=== PATIENT | male | born 1995 | race Caucasian/White ===

== ENCOUNTER 2016-06-15 14:09 | Emergency (ER) | payer OTHER ==
--- NOTE | 2016-06-15 14:52 | EDDOCDS ---
Physician Documentation [facility] Name: Hasmukh Newsome Age: 21 yrs Sex: Male : 1995 Arrival Date: 06/15/2016 Time: 14:09 Bed Triage 3 Private MD: PSYCHIATRIC [place] Disposition: 06/15/16 14:46 Discharged to Home/Self Care. Impression: Panic disorder [episodic paroxysmal anxiety] without agoraphobia, Abdominal and pelvic pain - left sided. - Condition is Stable. - Discharge Instructions: Panic Attacks. - Medication Reconciliation form. - Follow up: [facility]; When: Call to arrange an appointment; Reason: Wound/Symptom Recheck, Recheck today's complaints, Continuance of care. - Problem is an ongoing problem. - Symptoms are resolved. Historical: - Allergies: Ibuprofen (Anaphylaxis); - Home Meds: 1. none - PMHx: Anxiety; Arthritis; back injury; Panic Disorder; - PSHx: none; - Social history: Smoking status: Patient uses tobacco products, light tobacco smoker. No barriers to communication noted, The patient speaks fluent Montserratian. - : The pt / caregiver states he / she is not on anticoagulants. Home medication list is obtained from the patient. - Exposure Risk Screening:: None identified. Vital Signs: 06/15 14:11 BP 133 / 79; Pulse 78; Resp 18 S; Temp 97.6(O); Pulse Ox 100% on R/A; Weight 67.13 kg / gr2 148 lbs (R); Height 5 ft. 10 in. (177.80 cm) (R); Pain 3/10; 14:11 Body Mass Index 21.24 (67.13 kg, 177.80 cm) gr2 MDM: 14:50 Financial registration complete. lg Signatures: Edinson Clements RN RN dwg Jobson, Karen, RN RN kpj Ganter, LoriLee, Beau Reg lg Scotty Brooks, KB PAPaulette cc10 MTDD
--- NOTE | 2016-06-15 14:52 | EDDOCDS ---
Nurse's Notes [facility] Name: Hasmukh Newsome Age: 21 yrs Sex: Male : 1995 Arrival Date: 06/15/2016 Time: 14:09 Bed Triage 3 Private MD: AZDawood PARIS Diagnosis: Abdominal and pelvic pain-left sided;Panic disorder [episodic paroxysmal anxiety] without agoraphobia Presentation: 06/15 14:22 Presenting complaint: Patient states: while at a yoga class 1025 today felt his whole [facility] body tense up couldn't move eyes rolled back , denies LOC , body began to shake ,episode only lasted 10 seconds.States has a panic disorder and generalized anxiety disorder. Adult Sepsis Screening: The patient does not have new or worsening altered mentation. Patient's respiratory rate is less than 22. Systolic blood pressure is greater than 100. Patient has a qSOFA score of 0- Negative Sepsis Screen. Suicide/Homicide risk assessment- the patient denies having any suicidal and/or homicidal ideations and does not present with any other emotional, behavioral or mental health complaints. 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 Transition of care: patient was not received from another setting of care. 14:22 Acuity: EBONIE Level 3 [facility] 14:22 Method Of Arrival: Walkin/Carried/Asstd [facility] Triage Assessment: 14:28 General: Appears in no apparent distress, well nourished, well groomed, Behavior is j appropriate for age, pleasant. Pain: Location: anterior aspect of left lateral abdomen and anterior aspect of right lateral abdomen Pain currently is 4 out of 10 on a pain scale. Pt Declines HIV testing. Neurological: Level of Consciousness is awake, alert, Oriented to person, place, time. Respiratory: Airway is patent Respiratory effort is even, unlabored, Respiratory pattern is regular, symmetrical. GI: Reports Pain is 4 out of 10 on a pain scale. Derm: Skin is pink, warm & dry. Historical: - Allergies: Ibuprofen (Anaphylaxis); - Home Meds: 1. none - PMHx: Anxiety; Arthritis; back injury; Panic Disorder; - PSHx: none; - Social history: Smoking status: Patient uses tobacco products, light tobacco smoker. No barriers to communication noted, The patient speaks fluent Vietnamese. - : The pt / caregiver states he / she is not on anticoagulants. Home medication list is obtained from the patient. - Exposure Risk Screening:: None identified. Screenin:50 Screening information is obtained from the patient. Fall risk: No risks identified. dwg Assistance ADL's: requires no assistance with activities of daily living. Abuse/DV Screen: The patient / caregiver reports he/she is: not in a situation that causes fear, pain or injury. Nutritional screening: No deficits noted. Advance Directives: Currently, there is no health care proxy. There is no active DNR order. There is no living will. There is no Power of Automatic Dispenser Mechanic. Advance directive information has not previously been placed in an [facility] medical record. Further advance directive information is declined. home support is adequate. Assessment: 14:49 General: Appears in no apparent distress, Behavior is cooperative, pleasant. Pain: dwg Denies pain. Neurological: Level of Consciousness is awake, alert, Oriented to person, place, time. Respiratory: Airway is patent Respiratory effort is even, unlabored, Respiratory pattern is regular, symmetrical. Vital Signs: 14:11 BP 133 / 79; Pulse 78; Resp 18 S; Temp 97.6(O); Pulse Ox 100% on R/A; Weight 67.13 kg gr2 (R); Height 5 ft. 10 in. (177.80 cm) (R); Pain 3/10; 14:11 Body Mass Index 21.24 (67.13 kg, 177.80 cm) gr2 Vitals: 14:11 Log In Time: June 15, 2016 at 14:11. gr2 ED Course: 14:11 Patient visited by Olga Wells. gr2 14:11 [facility] is Private Physician. gr2 14:11 Patient moved to Waiting gr2 14:13 Patient visited by Olga Wells. gr2 14:13 Patient moved to Pre RCE gr2 14:26 Triage Initiated [facility] 14:30 Patient moved to Triage 3 kp 14:33 Scot[facility] Brooks [facility] cc[facility] 14:33 Day Dougherty MD is Attending Physician. cc10 14:33 Patient visited by Scotty Brooks PA-C. cc10 14:33 Patient visited by Scotty Brooks PA-C. cc10 14:45 [facility] Drum is Referral Physician. cc10 Order Results: There are currently no results for this order. Outcome: 14:46 Discharge ordered by Provider. cc10 14:50 Patient left the ED. [facility] Signatures: Edinson Clements, RN RN Sharona Mary RN RN Olga Muñoz gr2 Scotty Brooks, PACrystalC PA-C cc10 MTDD
--- NOTE | 2016-06-17 15:52 | EDDOCDS ---
Physician Documentation [facility] Name: Hasmukh Newsome Age: 21 yrs Sex: Male : 1995 Arrival Date: 06/15/2016 Time: 14:09 Bed Triage 3 Private MD: [facility] [place] Disposition: 06/15/16 14:46 Discharged to Home/Self Care. Impression: Panic disorder [episodic paroxysmal anxiety] without agoraphobia, Abdominal and pelvic pain - left sided. - Condition is Stable. - Discharge Instructions: Panic Attacks. - Medication Reconciliation form. - Follow up: [facility]; When: Call to arrange an appointment; Reason: Wound/Symptom Recheck, Recheck today's complaints, Continuance of care. - Problem is an ongoing problem. - Symptoms are resolved. Historical: - Allergies: Ibuprofen (Anaphylaxis); - Home Meds: 1. none - PMHx: Anxiety; Arthritis; back injury; Panic Disorder; - PSHx: none; - Social history: Smoking status: Patient uses tobacco products, light tobacco smoker. No barriers to communication noted, The patient speaks fluent Northern Irish. - : The pt / caregiver states he / she is not on anticoagulants. Home medication list is obtained from the patient. - Exposure Risk Screening:: None identified. Vital Signs: 06/15 14:11 BP 133 / 79; Pulse 78; Resp 18 S; Temp 97.6(O); Pulse Ox 100% on R/A; Weight 67.13 kg / gr2 148 lbs (R); Height 5 ft. 10 in. (177.80 cm) (R); Pain 3/10; 14:11 Body Mass Index 21.24 (67.13 kg, 177.80 cm) gr2 MDM: 14:50 Financial registration complete. lg 15:23 [facility] Payment Agreement was scanned into [employer] and attached to record. lg 06/16 11:41 T-Sheet-- Draft Copy was scanned into [employer] and attached to record. gb Signatures: Edinson Clements RN ILENE Sharona Drake RN RN kpj Barnhardt, Gloria, Reg Reg gb Erasto Erickson, Reg Reg lg Scotty Brooks, PA-C PA-C cc10 The chart was reviewed and I authenticate all verbal orders and agree with the evaluation and treatment provided.Attachments: 06/15 15:23 [facility] Payment Agreement lg 06/16 11:41 T-Sheet-- Draft Copy gb Chart Complete MTDD
--- NOTE | 2016-06-17 15:52 | EDDOCDS ---
Nurse's Notes [facility] Name: Hasmukh Newsome Age: 21 yrs Sex: Male : 1995 Arrival Date: 06/15/2016 Time: 14:09 Bed Triage 3 Private MD: OKDawood PARIS Diagnosis: Abdominal and pelvic pain-left sided;Panic disorder [episodic paroxysmal anxiety] without agoraphobia Presentation: 06/15 14:22 Presenting complaint: Patient states: while at a yoga class 1025 today felt his whole [facility] body tense up couldn't move eyes rolled back , denies LOC , body began to shake ,episode only lasted 10 seconds.States has a panic disorder and generalized anxiety disorder. Adult Sepsis Screening: The patient does not have new or worsening altered mentation. Patient's respiratory rate is less than 22. Systolic blood pressure is greater than 100. Patient has a qSOFA score of 0- Negative Sepsis Screen. Suicide/Homicide risk assessment- the patient denies having any suicidal and/or homicidal ideations and does not present with any other emotional, behavioral or mental health complaints. 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 Transition of care: patient was not received from another setting of care. 14:22 Acuity: EBONIE Level 3 [facility] 14:22 Method Of Arrival: Walkin/Carried/Asstd [facility] Triage Assessment: 14:28 General: Appears in no apparent distress, well nourished, well groomed, Behavior is j appropriate for age, pleasant. Pain: Location: anterior aspect of left lateral abdomen and anterior aspect of right lateral abdomen Pain currently is 4 out of 10 on a pain scale. Pt Declines HIV testing. Neurological: Level of Consciousness is awake, alert, Oriented to person, place, time. Respiratory: Airway is patent Respiratory effort is even, unlabored, Respiratory pattern is regular, symmetrical. GI: Reports Pain is 4 out of 10 on a pain scale. Derm: Skin is pink, warm & dry. Historical: - Allergies: Ibuprofen (Anaphylaxis); - Home Meds: 1. none - PMHx: Anxiety; Arthritis; back injury; Panic Disorder; - PSHx: none; - Social history: Smoking status: Patient uses tobacco products, light tobacco smoker. No barriers to communication noted, The patient speaks fluent Kyrgyz. - : The pt / caregiver states he / she is not on anticoagulants. Home medication list is obtained from the patient. - Exposure Risk Screening:: None identified. Screenin:50 Screening information is obtained from the patient. Fall risk: No risks identified. dwg Assistance ADL's: requires no assistance with activities of daily living. Abuse/DV Screen: The patient / caregiver reports he/she is: not in a situation that causes fear, pain or injury. Nutritional screening: No deficits noted. Advance Directives: Currently, there is no health care proxy. There is no active DNR order. There is no living will. There is no Power of Bank Vault Custodian. Advance directive information has not previously been placed in an [facility] medical record. Further advance directive information is declined. home support is adequate. Assessment: 14:49 General: Appears in no apparent distress, Behavior is cooperative, pleasant. Pain: dwg Denies pain. Neurological: Level of Consciousness is awake, alert, Oriented to person, place, time. Respiratory: Airway is patent Respiratory effort is even, unlabored, Respiratory pattern is regular, symmetrical. Vital Signs: 14:11 BP 133 / 79; Pulse 78; Resp 18 S; Temp 97.6(O); Pulse Ox 100% on R/A; Weight 67.13 kg gr2 (R); Height 5 ft. 10 in. (177.80 cm) (R); Pain 3/10; 14:11 Body Mass Index 21.24 (67.13 kg, 177.80 cm) gr2 Vitals: 14:11 Log In Time: June 15, 2016 at 14:11. gr2 ED Course: 14:11 Patient visited by Olga Wells. gr2 14:11 [facility] is Private Physician. gr2 14:11 Patient moved to Waiting gr2 14:13 Patient visited by Olga Wells. gr2 14:13 Patient moved to Pre RCE gr2 14:26 Triage Initiated [facility] 14:30 Patient moved to Triage 3 kp 14:33 Scotty Brooks [facility]-C [facility]. cc10 14:33 Day Dougherty MD is Attending Physician. cc10 14:33 Patient visited by Scotty Brooks PA-C. cc10 14:33 Patient visited by Scotty Brooks PA-C. cc10 14:45 [facility] Drum is Referral Physician. cc10 15:23 [facility] Payment Agreement was scanned into [employer] and attached to record. 06/16 11:41 T-Sheet-- Draft Copy was scanned into [employer] and attached to record. gb Order Results: There are currently no results for this order. Outcome: 06/15 14:46 Discharge ordered by Provider. cc10 14:[address] [facility] Signatures: Edinson Clements RN RN [facility] Sharona Herrera RN RN Chelsie Duncan, Reg Reg gb Erasto Erickson, Reg Reg lg Olga Wells gr2 Scotty Brooks PA-C PAPaulette cc10 Chart Complete MTDAlejandro
--- NOTE | 2016-06-17 15:52 | EDDOCDS ---
Physician Documentation [facility] Name: Hasmukh Newsome Age: 21 yrs Sex: Male : 1995 Arrival Date: 06/15/2016 Time: 14:09 Bed Triage 3 Private MD: [facility] [place] Disposition: 06/15/16 14:46 Discharged to Home/Self Care. Impression: Panic disorder [episodic paroxysmal anxiety] without agoraphobia, Abdominal and pelvic pain - left sided. - Condition is Stable. - Discharge Instructions: Panic Attacks. - Medication Reconciliation form. - Follow up: [facility]; When: Call to arrange an appointment; Reason: Wound/Symptom Recheck, Recheck today's complaints, Continuance of care. - Problem is an ongoing problem. - Symptoms are resolved. Historical: - Allergies: Ibuprofen (Anaphylaxis); - Home Meds: 1. none - PMHx: Anxiety; Arthritis; back injury; Panic Disorder; - PSHx: none; - Social history: Smoking status: Patient uses tobacco products, light tobacco smoker. No barriers to communication noted, The patient speaks fluent Malawian. - : The pt / caregiver states he / she is not on anticoagulants. Home medication list is obtained from the patient. - Exposure Risk Screening:: None identified. Vital Signs: 06/15 14:11 BP 133 / 79; Pulse 78; Resp 18 S; Temp 97.6(O); Pulse Ox 100% on R/A; Weight 67.13 kg / gr2 148 lbs (R); Height 5 ft. 10 in. (177.80 cm) (R); Pain 3/10; 14:11 Body Mass Index 21.24 (67.13 kg, 177.80 cm) gr2 MDM: 14:50 Financial registration complete. lg 15:23 [facility] Payment Agreement was scanned into [employer] and attached to record. lg 06/16 11:41 T-Sheet-- Draft Copy was scanned into [employer] and attached to record. gb Signatures: Edinson Clements RN ILENE Sharona Drake RN RN kpj Barnhardt, Gloria, Reg Reg gb Erasto Erickson, Reg Reg lg Scotty Brooks, PA-C PA-C [id number] The chart was reviewed and I authenticate all verbal orders and agree with the evaluation and treatment provided.Attachments: 06/15 15:23 [facility] Payment Agreement lg 06/16 11:41 T-Sheet-- Draft Copy gb Chart Complete MTDD
== END 2016-06-15 14:50 | disposition home or self-care (01) ==
LOC: M ED 14:09
DX: F41.0 Panic disorder [episodic paroxysmal anxiety] (principal); R10.9 Unspecified abdominal pain; Z87.820 Personal history of traumatic brain injury; M19.90 Unspecified osteoarthritis, unspecified site; Z87.828 Personal history of other (healed) physical injury and trauma; F17.210 Nicotine dependence, cigarettes, uncomplicated; Z88.6 Allergy status to analgesic agent

== ENCOUNTER → 2016-06-15 | Outpatient (REF) | payer OTHER | LOC: M SFHCLERA 13:12 | PROVIDERS: ATTEND Nurse Practitioner Family | DX: R11.0 Nausea (principal) ==

== ENCOUNTER 2016-06-16 10:12 | Emergency (ER) | payer OTHER ==
--- NOTE | 2016-06-16 13:24 | EDDOCDS ---
Nurse's Notes [facility] Name: Hasmukh Newsome Age: 21 yrs Sex: Male : 1995 Arrival Date: 06/16/2016 Time: 10:12 Bed [facility] Private MD: RIDawood PARIS Diagnosis: Anxiety disorder, unspecified Presentation: 06/16 10:16 Presenting complaint: Patient states: yesterday had a bad panic attack- entire body srm locked up and convulsed. seen here for the incident. today while at work started to get shaking in arms and legs again. hx of panic disorder and attacks. Presenting complaint: Patient states: has been off meds since march. Mental Health Triage Level: Level 2: made statement to commander that i dont know what il;ll do if i have to stay here any longer. Adult Sepsis Screening: The patient does not have new or worsening altered mentation. Patient's respiratory rate is less than 22. Systolic blood pressure is greater than 100. Patient has a qSOFA score of 0- Negative Sepsis Screen. Suicide/Homicide risk assessment- Patient denies SI and HI but presents with another emotional, behavioral or other mental health complaint. The patient reports that he/she has not been admitted to an inpatient mental health facility in the last 30 days. The patient reports that he/she has a recent or current history of substance abuse. The patient reports that he/she has no prior history of suicide attempt and/or organized plan. The patient reports that he/she has experienced a significant life altering event in the last 30 days. 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 Transition of care: patient was not received from another setting of care. 10:16 Acuity: EBONIE Level 3 srm 10:16 Method Of Arrival: Walkin/Carried/Asstd srm Triage Assessment: 10:20 General: Appears in no apparent distress, Behavior is anxious, appropriate for age, srm cooperative. Pain: Denies pain. HIV screening NA for this visit Offered previously. Historical: - Allergies: Ibuprofen (Anaphylaxis); - Home Meds: 1. none - PMHx: Anxiety; Arthritis; back injury; Panic Disorder; - PSHx: none; - Social history: Smoking status: Patient uses tobacco products, current every day smoker. No barriers to communication noted, The patient speaks fluent Portuguese, Speaks appropriately for age. - Family history: Not pertinent. - : The pt / caregiver states he / she is not on anticoagulants. Home medication list is obtained from the patient. - Exposure Risk Screening:: None identified. Screenin:49 Screening information is obtained from the patient. Fall risk: No risks identified. rs3 Assistance ADL's: requires no assistance with activities of daily living. Abuse/DV Screen: The patient / caregiver reports he/she is: not in a situation that causes fear, pain or injury. Nutritional screening: No deficits noted. Advance Directives: Currently, there is no health care proxy. There is no active DNR order. home support is adequate. Assessment: 11:39 General: Appears in no apparent distress, Behavior is appropriate for age, cooperative. rs3 General: patient significant other came out called the staff saying he was having panic attack. talked to the patient. states" i closed my eyes, had fiery thought, my body went stiff,numb and could not move" got scared" as patient talked about his panic attack, he also described the several coping mechanism tools he used in the past. Reinforced on doing coping technique that helps him. patient sits on stretcher more calm and relieved after brief conversation. . Pain: Denies pain. Cardiovascular: Capillary refill < 3 seconds. Respiratory: Airway is patent Respiratory effort is even, unlabored, Respiratory pattern is regular, symmetrical. Derm: Skin is pink, warm & dry. 12:45 General: Appears in no apparent distress, Behavior is appropriate for age, cooperative, rs3 waiting for lunch. family at bedside. dawood Moy with patient talking to him. denies of distress/pain. . 13:23 Reassessment: Patient appears in no apparent distress at this time. Patient denies pain rs3 at this time. Patient states feeling better. Patient states symptoms have improved. Social Work Consult: 12:48 Social Work Note: Met with Pt and at bedside. Pt is AD and in process of rb med boarding out [employer] the [employer] according to Pt. Pt reported has severe panic attacks to the point of his body will "lock up" . Pt stated panic attacks started 06/2015 after attending [employer], had a bad landing do to chute not opening correctly. Pt reports now terrified of elevators, plans, heights. Pt stated hx of anxiety since age 11 but worse after 06/2015. According to Pt in process of med boarding out of the [employer] , JONATHAN is Vickie Sun[facility] on [facility]. 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 Pt seen by Dr. Sharif \\T\\ Justin, every 2 weeks for TBI/ therapy. Pt stated medication has run out 03/2016, and has not been seen at [facility] for the last 3 months. Pt lives with supportive of 6 months. Pt reported not sleeping, has racing thoughts. Pt to followup with [facility]. No further interventions needed at this time. Vital Signs: 10:13 BP 155 / 93; Pulse 96; Resp 18 S; Temp 96.9(O); Pulse Ox 98% on R/A; Weight 67.13 kg dd6 (R); Height 5 ft. 10 in. (177.80 cm) (R); 13:23 BP 152 / 91; Pulse 84; Resp 18; Temp 98(T); Pulse Ox 99% on R/A; Pain 0/10; rs3 10:13 Body Mass Index 21.24 (67.13 kg, 177.80 cm) dd6 Vitals: 10:13 Log In Time: June 16, 2016 at 10:11. RN notified that patient meets Red Flag dd6 criteria. ED Course: 10:13 Patient visited by Refugio Roque PCA. dd6 10:13 [facility] [place] is Private Physician. dd6 10:13 Patient moved to Waiting dd6 10:19 Triage Initiated srm 10:20 Patient moved to 30 srm 10:21 Patient moved to RUST srm 10:23 Day Dougherty MD is Attending Physician. sd1 10:29 Patient visited by Day Dougherty MD. sd1 10:45 Psych Safety Check: Location: Psych Room. Visual Assessment: Cooperative. pjf 10:50 Psych Safety Check: Location: Psych Room. Visual Assessment: pt signature obtained on tmm1 inventory sheet, pt is cooperative and conversing with spouse. 10:56 [facility] Payment Agreement was scanned into [employer] and attached to record. lg 11:06 Pt greeted and oriented to ED. Patient advised of names of staff involved in care, pjf location of call childs, wait times and NPO status. Accompanied by Family Member, Patient has correct armband on for positive identification. Placed in psych safe attire. Bed in low position. Call light in reach. Side rails up X 1. Security observing. Property removed, secured in belongings bag- Placed in locker #5. Door closed. Noise minimized. Visitors limited. Report received from rn - psych. triage level #2, anx., cooperative \\T\\ this time. The patient / caregiver is instructed regarding the plan of care and ED course. Psych Safety Check: Location: Psych Room. 11:13 Patient visited by Genny Campbell RN. rs3 11:29 Patient visited by Beatrice Mg PCA. tmm1 11:44 Patient visited by Beatrice Mg PCA. tmm1 11:57 Patient visited by Greg Lee Security Aide. pjf 12:16 Patient visited by Greg Lee Security Aide. pjf 12:32 Patient visited by Greg Lee Security Aide. pjf 12:48 Patient visited by Greg Lee Security Aide. pjf 13:10 [facility] sd1 13:24 No IV's were initiated during this patient's visit. No procedures done that require rs3 assistance. Order Results: There are currently no results for this order. Outcome: 13:10 Discharge ordered by Provider. sd1 13:23 Discharge Assessment: patient administered narcotics - no. The following High Risk rs3 Discharge criteria are identified: None. Discharged to home linda. Condition: stable. Discharge instructions given to patient, Instructed on discharge instructions, follow up and referral plans. medication usage, Demonstrated understanding of instructions, medications, Pt was receptive of discharge instructions/ teaching. No special radiology studies were completed. 13:24 Patient left the ED. rs3 Signatures: Day Dougherty MD MD sd1 Karmen Valera RN RN srm Beka, Shell, PSA PSA rb Erasto Erickson, Reg Reg lg Greg Lee Security Aide Securpjf Refugio Roque, SENIOR ANDROID DEVELOPER SENIOR ANDROID DEVELOPER dd6 Genny Campbell RN RN rs3 McLBeatrice peck PCA SENIOR ANDROID DEVELOPER tmm1 MTDD
--- NOTE | 2016-06-16 13:24 | EDDOCDS ---
Physician Documentation [facility] Name: Hasmukh Newsome Age: 21 yrs Sex: Male : 1995 Arrival Date: 06/16/2016 Time: 10:12 Bed [facility] Private MD: Dawood BRANDT Disposition: 06/16/16 13:10 Discharged to Home/Self Care. Impression: Anxiety disorder, unspecified. - Condition is Stable. - Discharge Instructions: Panic Attacks, Generalized Anxiety Disorder, Panic Attacks, [id number]. - Medication Reconciliation, Local Pharmacy Hours form. - Follow up: Dawood Hurtado, [facility]; When: Upon discharge from the Emergency Department. - Problem is an acute exacerbation. - Symptoms are resolved. Historical: - Allergies: Ibuprofen (Anaphylaxis); - Home Meds: 1. none - PMHx: Anxiety; Arthritis; back injury; Panic Disorder; - PSHx: none; - Social history: Smoking status: Patient uses tobacco products, current every day smoker. No barriers to communication noted, The patient speaks fluent Greenlandic, Speaks appropriately for age. - Family history: Not pertinent. - : The pt / caregiver states he / she is not on anticoagulants. Home medication list is obtained from the patient. - Exposure Risk Screening:: None identified. Vital Signs: 06/16 10:13 BP 155 / 93; Pulse 96; Resp 18 S; Temp 96.9(O); Pulse Ox 98% on R/A; Weight 67.13 kg / dd6 148 lbs (R); Height 5 ft. 10 in. (177.80 cm) (R); 13:23 BP 152 / 91; Pulse 84; Resp 18; Temp 98(T); Pulse Ox 99% on R/A; Pain 0/10; rs3 10:13 Body Mass Index 21.24 (67.13 kg, 177.80 cm) dd6 MDM: 10:49 Financial registration complete. lg 10:56 [facility] Payment Agreement was scanned into [employer] and attached to record. Signatures: Day Dougherty MD MD sd1 Karmen Valera RN RN Erasto Barone, Reg Reg lg Genny Campbell RN RN rs3 The chart was reviewed and I authenticate all verbal orders and agree with the evaluation and treatment provided.Attachments: 10:56 [facility] Payment Agreement lg MTDD
--- NOTE | 2016-06-18 14:25 | EDDOCDS ---
Physician Documentation [facility] Name: Hasmukh Newsome Age: 21 yrs Sex: Male : 1995 Arrival Date: 06/16/2016 Time: 10:12 Bed [facility] Private MD: Dawood BRANDT Disposition: 06/16/16 13:10 Discharged to Home/Self Care. Impression: Anxiety disorder, unspecified. - Condition is Stable. - Discharge Instructions: Panic Attacks, Generalized Anxiety Disorder, Panic Attacks, [id number]. - Medication Reconciliation, Local Pharmacy Hours form. - Follow up: Dawood Hurtado, [facility]; When: Upon discharge from the Emergency Department. - Problem is an acute exacerbation. - Symptoms are resolved. Historical: - Allergies: Ibuprofen (Anaphylaxis); - Home Meds: 1. none - PMHx: Anxiety; Arthritis; back injury; Panic Disorder; - PSHx: none; - Social history: Smoking status: Patient uses tobacco products, current every day smoker. No barriers to communication noted, The patient speaks fluent Azerbaijani, Speaks appropriately for age. - Family history: Not pertinent. - : The pt / caregiver states he / she is not on anticoagulants. Home medication list is obtained from the patient. - Exposure Risk Screening:: None identified. Vital Signs: 06/16 10:13 BP 155 / 93; Pulse 96; Resp 18 S; Temp 96.9(O); Pulse Ox 98% on R/A; Weight 67.13 kg / dd6 148 lbs (R); Height 5 ft. 10 in. (177.80 cm) (R); 13:23 BP 152 / 91; Pulse 84; Resp 18; Temp 98(T); Pulse Ox 99% on R/A; Pain 0/10; rs3 10:13 Body Mass Index 21.24 (67.13 kg, 177.80 cm) dd6 MDM: 10:49 Financial registration complete. lg 10:56 [facility] Payment Agreement was scanned into [employer] and attached to record. Signatures: Day Dougherty MD MD sd1 Karmen Valera RN RN Erasto Barone, Reg Reg lg Genny Campbell RN RN rs3 The chart was reviewed and I authenticate all verbal orders and agree with the evaluation and treatment provided.Attachments: 10:56 [facility] Payment Agreement lg Chart Complete MTDD
--- NOTE | 2016-06-18 14:25 | EDDOCDS ---
Physician Documentation [facility] Name: Hasmukh Newsome Age: 21 yrs Sex: Male : 1995 Arrival Date: 06/16/2016 Time: 10:12 Bed [facility] Private MD: Dawood BRANDT Disposition: 06/16/16 13:10 Discharged to Home/Self Care. Impression: Anxiety disorder, unspecified. - Condition is Stable. - Discharge Instructions: Panic Attacks, Generalized Anxiety Disorder, Panic Attacks, [id number]. - Medication Reconciliation, Local Pharmacy Hours form. - Follow up: Dawood Hurtado, [facility]; When: Upon discharge from the Emergency Department. - Problem is an acute exacerbation. - Symptoms are resolved. Historical: - Allergies: Ibuprofen (Anaphylaxis); - Home Meds: 1. none - PMHx: Anxiety; Arthritis; back injury; Panic Disorder; - PSHx: none; - Social history: Smoking status: Patient uses tobacco products, current every day smoker. No barriers to communication noted, The patient speaks fluent Armenian, Speaks appropriately for age. - Family history: Not pertinent. - : The pt / caregiver states he / she is not on anticoagulants. Home medication list is obtained from the patient. - Exposure Risk Screening:: None identified. Vital Signs: 06/16 10:13 BP 155 / 93; Pulse 96; Resp 18 S; Temp 96.9(O); Pulse Ox 98% on R/A; Weight 67.13 kg / dd6 148 lbs (R); Height 5 ft. 10 in. (177.80 cm) (R); 13:23 BP 152 / 91; Pulse 84; Resp 18; Temp 98(T); Pulse Ox 99% on R/A; Pain 0/10; rs3 10:13 Body Mass Index 21.24 (67.13 kg, 177.80 cm) dd6 MDM: 10:49 Financial registration complete. lg 10:56 [facility] Payment Agreement was scanned into [employer] and attached to record. Signatures: Day Dougherty MD MD sd1 Karmen Valera RN RN Erasto Barone, Reg Reg lg Genny Campbell RN RN rs3 The chart was reviewed and I authenticate all verbal orders and agree with the evaluation and treatment provided.Attachments: 10:56 [facility] Payment Agreement lg Chart Complete MTDD
--- NOTE | 2016-06-18 14:25 | EDDOCDS ---
Nurse's Notes [facility] Name: Hasmukh Newsome Age: 21 yrs Sex: Male : 1995 Arrival Date: 06/16/2016 Time: 10:12 Bed [facility]5 Private MD: DCDawood [place] Diagnosis: Anxiety disorder, unspecified Presentation: 06/16 10:16 Presenting complaint: Patient states: yesterday had a bad panic attack- entire body srm locked up and convulsed. seen here for the incident. today while at work started to get shaking in arms and legs again. hx of panic disorder and attacks. Presenting complaint: Patient states: has been off meds since march. Mental Health Triage Level: Level 2: made statement to commander that i dont know what il;ll do if i have to stay here any longer. Adult Sepsis Screening: The patient does not have new or worsening altered mentation. Patient's respiratory rate is less than 22. Systolic blood pressure is greater than 100. Patient has a qSOFA score of 0- Negative Sepsis Screen. Suicide/Homicide risk assessment- Patient denies SI and HI but presents with another emotional, behavioral or other mental health complaint. The patient reports that he/she has not been admitted to an inpatient mental health facility in the last 30 days. The patient reports that he/she has a recent or current history of substance abuse. The patient reports that he/she has no prior history of suicide attempt and/or organized plan. The patient reports that he/she has experienced a significant life altering event in the last 30 days. 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 Transition of care: patient was not received from another setting of care. 10:16 Acuity: EBONIE Level 3 srm 10:16 Method Of Arrival: Walkin/Carried/Asstd srm Triage Assessment: 10:20 General: Appears in no apparent distress, Behavior is anxious, appropriate for age, srm cooperative. Pain: Denies pain. HIV screening NA for this visit Offered previously. Historical: - Allergies: Ibuprofen (Anaphylaxis); - Home Meds: 1. none - PMHx: Anxiety; Arthritis; back injury; Panic Disorder; - PSHx: none; - Social history: Smoking status: Patient uses tobacco products, current every day smoker. No barriers to communication noted, The patient speaks fluent Italian, Speaks appropriately for age. - Family history: Not pertinent. - : The pt / caregiver states he / she is not on anticoagulants. Home medication list is obtained from the patient. - Exposure Risk Screening:: None identified. Screenin:49 Screening information is obtained from the patient. Fall risk: No risks identified. rs3 Assistance ADL's: requires no assistance with activities of daily living. Abuse/DV Screen: The patient / caregiver reports he/she is: not in a situation that causes fear, pain or injury. Nutritional screening: No deficits noted. Advance Directives: Currently, there is no health care proxy. There is no active DNR order. home support is adequate. Assessment: 11:39 General: Appears in no apparent distress, Behavior is appropriate for age, cooperative. rs3 General: patient significant other came out called the staff saying he was having panic attack. talked to the patient. states" i closed my eyes, had fiery thought, my body went stiff,numb and could not move" got scared" as patient talked about his panic attack, he also described the several coping mechanism tools he used in the past. Reinforced on doing coping technique that helps him. patient sits on stretcher more calm and relieved after brief conversation. . Pain: Denies pain. Cardiovascular: Capillary refill < 3 seconds. Respiratory: Airway is patent Respiratory effort is even, unlabored, Respiratory pattern is regular, symmetrical. Derm: Skin is pink, warm & dry. 12:45 General: Appears in no apparent distress, Behavior is appropriate for age, cooperative, rs3 waiting for lunch. family at bedside. dawood Moy with patient talking to him. denies of distress/pain. . 13:23 Reassessment: Patient appears in no apparent distress at this time. Patient denies pain rs3 at this time. Patient states feeling better. Patient states symptoms have improved. Social Work Consult: 12:48 Social Work Note: Met with Pt and at bedside. Pt is AD and in process of rb med boarding [employer] according to Pt. Pt reported has severe panic attacks to the point of his body will "lock up" . Pt stated panic attacks started 06/2015 after attending [employer], had a bad landing do to chute not opening correctly. Pt reports now terrified of elevators, plans, heights. Pt stated hx of anxiety since age 11 but worse after 06/2015. According to Pt in process of med boarding out of the [employer] , JONATHAN is Vickie [employer] on [facility]. 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 Pt seen by Dr. Sharif \\T\\ Justin, every 2 weeks for TBI/ therapy. Pt stated medication has run out 03/2016, and has not been seen at [facility] for the last 3 months. Pt lives with supportive of 6 months. Pt reported not sleeping, has racing thoughts. Pt to followup with [facility]. No further interventions needed at this time. Vital Signs: 10:13 BP 155 / 93; Pulse 96; Resp 18 S; Temp 96.9(O); Pulse Ox 98% on R/A; Weight 67.13 kg dd6 (R); Height 5 ft. 10 in. (177.80 cm) (R); 13:23 BP 152 / 91; Pulse 84; Resp 18; Temp 98(T); Pulse Ox 99% on R/A; Pain 0/10; rs3 10:13 Body Mass Index 21.24 (67.13 kg, 177.80 cm) dd6 Vitals: 10:13 Log In Time: June 16, 2016 at 10:11. RN notified that patient meets Red Flag dd6 criteria. ED Course: 10:13 Patient visited by Refugio Roque PCA. dd6 10:13 [facility], Jelm is Private Physician. dd6 10:13 Patient moved to Waiting dd6 10:19 Triage Initiated srm 10:20 Patient moved to 30 srm 10:21 Patient moved to [facility] srm 10:23 Day Dougherty MD is Attending Physician. sd1 10:29 Patient visited by Day Dougherty MD. sd1 10:45 Psych Safety Check: Location: Psych Room. Visual Assessment: Cooperative. pjf 10:50 Psych Safety Check: Location: Psych Room. Visual Assessment: pt signature obtained on tmm1 inventory sheet, pt is cooperative and conversing with spouse. 10:56 [facility] Payment Agreement was scanned into [employer] and attached to record. lg 11:06 Pt greeted and oriented to ED. Patient advised of names of staff involved in care, pjf location of call childs, wait times and NPO status. Accompanied by Family Member, Patient has correct armband on for positive identification. Placed in psych safe attire. Bed in low position. Call light in reach. Side rails up X 1. Security observing. Property removed, secured in belongings bag- Placed in locker #5. Door closed. Noise minimized. Visitors limited. Report received from rn - psych. triage level #2, anx., cooperative \\T\\ this time. The patient / caregiver is instructed regarding the plan of care and ED course. Psych Safety Check: Location: Psych Room. 11:13 Patient visited by Genny Campbell RN. rs3 11:29 Patient visited by Beatrice Mg PCA. tmm1 11:44 Patient visited by Beatrice Mg PCA. tmm1 11:57 Patient visited by Greg Lee Security Aide. pjf 12:16 Patient visited by Greg Lee Security Aide. pjf 12:32 Patient visited by Greg Lee Security Aide. pjf 12:48 Patient visited by Greg Lee Security Aide. pjf 13:10 [facility] sd1 13:24 No IV's were initiated during this patient's visit. No procedures done that require rs3 assistance. Order Results: There are currently no results for this order. Outcome: 13:10 Discharge ordered by Provider. sd1 13:23 Discharge Assessment: patient administered narcotics - no. The following High Risk rs3 Discharge criteria are identified: None. Discharged to home linda. Condition: stable. Discharge instructions given to patient, Instructed on discharge instructions, follow up and referral plans. medication usage, Demonstrated understanding of instructions, medications, Pt was receptive of discharge instructions/ teaching. No special radiology studies were completed. 13:24 Patient left the ED. rs3 Signatures: Day Dougherty MD MD sd1 Karmen Valera RN RN srm Beak, Shell, PSA PSA rb Erasto Erickson, Reg Reg lg Greg Lee Security Aide Securpjf Refugio Roque, KILN LOADER KILN LOADER dd6 Genny Campbell RN RN rs3 McLBeatrice peck PCA KILN LOADER tmm1 Chart Complete MTDD
--- NOTE | 2016-06-21 13:57 | EDDOCDS ---
Physician Documentation [facility] Name: Hasmukh Newsome Age: 21 yrs Sex: Male : 1995 Arrival Date: 06/16/2016 Time: 10:[address] [facility]5 Private MD: Dawood BRANDT Disposition: 06/16/16 13:10 Discharged to Home/Self Care. Impression: Anxiety disorder, unspecified. - Condition is Stable. - Discharge Instructions: Panic Attacks, Generalized Anxiety Disorder, Panic Attacks, [id number]-Koyl. - Medication Reconciliation, Local Pharmacy Hours form. - Follow up: Dawood Hurtado, [facility]; When: Upon discharge from the Emergency Department. - Problem is an acute exacerbation. - Symptoms are resolved. Historical: - Allergies: Ibuprofen (Anaphylaxis); - Home Meds: 1. none - PMHx: Anxiety; Arthritis; back injury; Panic Disorder; - PSHx: none; - Social history: Smoking status: Patient uses tobacco products, current every day smoker. No barriers to communication noted, The patient speaks fluent Equatorial Guinean, Speaks appropriately for age. - Family history: Not pertinent. - : The pt / caregiver states he / she is not on anticoagulants. Home medication list is obtained from the patient. - Exposure Risk Screening:: None identified. Vital Signs: 06/16 10:13 BP 155 / 93; Pulse 96; Resp 18 S; Temp 96.9(O); Pulse Ox 98% on R/A; Weight 67.13 kg / dd6 148 lbs (R); Height 5 ft. 10 in. (177.80 cm) (R); 13:23 BP 152 / 91; Pulse 84; Resp 18; Temp 98(T); Pulse Ox 99% on R/A; Pain 0/10; rs3 10:13 Body Mass Index 21.24 (67.13 kg, 177.80 cm) dd6 MDM: 10:49 Financial registration complete. lg 10:56 [facility] Payment Agreement was scanned into [employer] and attached to record. Signatures: Day Dougherty MD MD sd1 Karmen Valera RN RN Erasto Barone, Reg Reg lg Genny Campbell RN RN rs3 The chart was reviewed and I authenticate all verbal orders and agree with the evaluation and treatment provided.Attachments: 10:56 [facility] Payment Agreement lg Chart Complete MTDD
--- NOTE | 2016-06-21 13:57 | EDDOCDS ---
Physician Documentation [facility] Name: Hasmukh Newsome Age: 21 yrs Sex: Male : 1995 Arrival Date: 06/16/2016 Time: 10:12 Bed [facility] Private MD: Dawood BRANDT Disposition: 06/16/16 13:10 Discharged to Home/Self Care. Impression: Anxiety disorder, unspecified. - Condition is Stable. - Discharge Instructions: Panic Attacks, Generalized Anxiety Disorder, Panic Attacks, [id number]. - Medication Reconciliation, Local Pharmacy Hours form. - Follow up: Dawood Hurtado, [facility]; When: Upon discharge from the Emergency Department. - Problem is an acute exacerbation. - Symptoms are resolved. Historical: - Allergies: Ibuprofen (Anaphylaxis); - Home Meds: 1. none - PMHx: Anxiety; Arthritis; back injury; Panic Disorder; - PSHx: none; - Social history: Smoking status: Patient uses tobacco products, current every day smoker. No barriers to communication noted, The patient speaks fluent Estonian, Speaks appropriately for age. - Family history: Not pertinent. - : The pt / caregiver states he / she is not on anticoagulants. Home medication list is obtained from the patient. - Exposure Risk Screening:: None identified. Vital Signs: 06/16 10:13 BP 155 / 93; Pulse 96; Resp 18 S; Temp 96.9(O); Pulse Ox 98% on R/A; Weight 67.13 kg / dd6 148 lbs (R); Height 5 ft. 10 in. (177.80 cm) (R); 13:23 BP 152 / 91; Pulse 84; Resp 18; Temp 98(T); Pulse Ox 99% on R/A; Pain 0/10; rs3 10:13 Body Mass Index 21.24 (67.13 kg, 177.80 cm) dd6 MDM: 10:49 Financial registration complete. lg 10:56 [facility] Payment Agreement was scanned into [employer] and attached to record. Signatures: Day Dougherty MD MD sd1 Karmen Valera RN RN Erasto Barone, Reg Reg lg Genny Campbell RN RN rs3 The chart was reviewed and I authenticate all verbal orders and agree with the evaluation and treatment provided.Attachments: 10:56 [facility] Payment Agreement lg Chart Complete MTDD
--- NOTE | 2016-06-21 13:57 | EDDOCDS ---
Nurse's Notes [facility] Name: Hasmukh Newsome Age: 21 yrs Sex: Male : 1995 Arrival Date: 06/16/2016 Time: 10:12 Bed [facility] Private MD: ORDawood PARIS Diagnosis: Anxiety disorder, unspecified Presentation: 06/16 10:16 Presenting complaint: Patient states: yesterday had a bad panic attack- entire body srm locked up and convulsed. seen here for the incident. today while at work started to get shaking in arms and legs again. hx of panic disorder and attacks. Presenting complaint: Patient states: has been off meds since march. Mental Health Triage Level: Level 2: made statement to commander that i dont know what il;ll do if i have to stay here any longer. Adult Sepsis Screening: The patient does not have new or worsening altered mentation. Patient's respiratory rate is less than 22. Systolic blood pressure is greater than 100. Patient has a qSOFA score of 0- Negative Sepsis Screen. Suicide/Homicide risk assessment- Patient denies SI and HI but presents with another emotional, behavioral or other mental health complaint. The patient reports that he/she has not been admitted to an inpatient mental health facility in the last 30 days. The patient reports that he/she has a recent or current history of substance abuse. The patient reports that he/she has no prior history of suicide attempt and/or organized plan. The patient reports that he/she has experienced a significant life altering event in the last 30 days. 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 Transition of care: patient was not received from another setting of care. 10:16 Acuity: EBONIE Level 3 srm 10:16 Method Of Arrival: Walkin/Carried/Asstd srm Triage Assessment: 10:20 General: Appears in no apparent distress, Behavior is anxious, appropriate for age, srm cooperative. Pain: Denies pain. HIV screening NA for this visit Offered previously. Historical: - Allergies: Ibuprofen (Anaphylaxis); - Home Meds: 1. none - PMHx: Anxiety; Arthritis; back injury; Panic Disorder; - PSHx: none; - Social history: Smoking status: Patient uses tobacco products, current every day smoker. No barriers to communication noted, The patient speaks fluent Syriac, Speaks appropriately for age. - Family history: Not pertinent. - : The pt / caregiver states he / she is not on anticoagulants. Home medication list is obtained from the patient. - Exposure Risk Screening:: None identified. Screenin:49 Screening information is obtained from the patient. Fall risk: No risks identified. rs3 Assistance ADL's: requires no assistance with activities of daily living. Abuse/DV Screen: The patient / caregiver reports he/she is: not in a situation that causes fear, pain or injury. Nutritional screening: No deficits noted. Advance Directives: Currently, there is no health care proxy. There is no active DNR order. home support is adequate. Assessment: 11:39 General: Appears in no apparent distress, Behavior is appropriate for age, cooperative. rs3 General: patient significant other came out called the staff saying he was having panic attack. talked to the patient. states" i closed my eyes, had fiery thought, my body went stiff,numb and could not move" got scared" as patient talked about his panic attack, he also described the several coping mechanism tools he used in the past. Reinforced on doing coping technique that helps him. patient sits on stretcher more calm and relieved after brief conversation. . Pain: Denies pain. Cardiovascular: Capillary refill < 3 seconds. Respiratory: Airway is patent Respiratory effort is even, unlabored, Respiratory pattern is regular, symmetrical. Derm: Skin is pink, warm & dry. 12:45 General: Appears in no apparent distress, Behavior is appropriate for age, cooperative, rs3 waiting for lunch. family at bedside. dawood Moy with patient talking to him. denies of distress/pain. . 13:23 Reassessment: Patient appears in no apparent distress at this time. Patient denies pain rs3 at this time. Patient states feeling better. Patient states symptoms have improved. Social Work Consult: 12:48 Social Work Note: Met with Pt and at bedside. Pt is AD and in process of rb med boarding [employer] according to Pt. Pt reported has severe panic attacks to the point of his body will "lock up" . Pt stated panic attacks started 06/2015 after attending [employer], had a bad landing do to chute not opening correctly. Pt reports now terrified of elevators, plans, heights. Pt stated hx of anxiety since age 11 but worse after 06/2015. According to Pt in process of med boarding out of the [employer] , JONATHAN is [facility] on [facility]. 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 Pt seen by Dr. Sharif \\T\\ Justin, every 2 weeks for TBI/ therapy. Pt stated medication has run out 03/2016, and has not been seen at [facility] for the last 3 months. Pt lives with supportive of 6 months. Pt reported not sleeping, has racing thoughts. Pt to followup with [facility]. No further interventions needed at this time. Vital Signs: 10:13 BP 155 / 93; Pulse 96; Resp 18 S; Temp 96.9(O); Pulse Ox 98% on R/A; Weight 67.13 kg dd6 (R); Height 5 ft. 10 in. (177.80 cm) (R); 13:23 BP 152 / 91; Pulse 84; Resp 18; Temp 98(T); Pulse Ox 99% on R/A; Pain 0/10; rs3 10:13 Body Mass Index 21.24 (67.13 kg, 177.80 cm) dd6 Vitals: 10:13 Log In Time: June 16, 2016 at 10:11. RN notified that patient meets Red Flag dd6 criteria. ED Course: 10:13 Patient visited by Refugio Roque PCA. dd6 10:13 [facility], [place] is Private Physician. dd6 10:13 Patient moved to Waiting dd6 10:19 Triage Initiated srm 10:20 Patient moved to 30 srm 10:21 Patient moved to [facility] srm 10:23 Day Dougherty MD is Attending Physician. sd1 10:29 Patient visited by Day Dougherty MD. sd1 10:45 Psych Safety Check: Location: Psych Room. Visual Assessment: Cooperative. pjf 10:50 Psych Safety Check: Location: Psych Room. Visual Assessment: pt signature obtained on tmm1 inventory sheet, pt is cooperative and conversing with spouse. 10:56 [facility] Payment Agreement was scanned into [employer] and attached to record. lg 11:06 Pt greeted and oriented to ED. Patient advised of names of staff involved in care, pjf location of call childs, wait times and NPO status. Accompanied by Family Member, Patient has correct armband on for positive identification. Placed in psych safe attire. Bed in low position. Call light in reach. Side rails up X 1. Security observing. Property removed, secured in belongings bag- Placed in locker #5. Door closed. Noise minimized. Visitors limited. Report received from rn - psych. triage level #2, anx., cooperative \\T\\ this time. The patient / caregiver is instructed regarding the plan of care and ED course. Psych Safety Check: Location: Psych Room. 11:13 Patient visited by Genny Campbell RN. rs3 11:29 Patient visited by Beatrice Mg PCA. tmm1 11:44 Patient visited by Beatrice Mg PCA. tmm1 11:57 Patient visited by Greg Lee Security Aide. pjf 12:16 Patient visited by Greg Lee Security Aide. pjf 12:32 Patient visited by Greg Lee Security Aide. pjf 12:48 Patient visited by Greg Lee Security Aide. pjf 13:10 [facility] sd1 13:24 No IV's were initiated during this patient's visit. No procedures done that require rs3 assistance. Order Results: There are currently no results for this order. Outcome: 13:10 Discharge ordered by Provider. sd1 13:23 Discharge Assessment: patient administered narcotics - no. The following High Risk rs3 Discharge criteria are identified: None. Discharged to home linda. Condition: stable. Discharge instructions given to patient, Instructed on discharge instructions, follow up and referral plans. medication usage, Demonstrated understanding of instructions, medications, Pt was receptive of discharge instructions/ teaching. No special radiology studies were completed. 13:24 Patient left the ED. rs3 Signatures: Day Dougherty MD MD sd1 Karmen Valera RN RN srm Beka, Shell, PSA PSA rb Erasto Erickson, Reg Reg lg Greg Lee Security Aide Securpjf Refugio Roque, FIXED INTEREST DEALER FIXED INTEREST DEALER dd6 Genny Campbell RN RN rs3 McLBeatrice peck PCA FIXED INTEREST DEALER tmm1 Chart Complete MTDD
== END 2016-06-16 13:24 | disposition home or self-care (01) ==
LOC: M ED 10:12
DX: F41.0 Panic disorder [episodic paroxysmal anxiety] (principal); M19.90 Unspecified osteoarthritis, unspecified site; Z72.0 Tobacco use; Z88.6 Allergy status to analgesic agent